=== PATIENT | male | born 1975 | race Caucasian/White ===

== ENCOUNTER → 2020-06-29 | Outpatient (CLI) | payer OTHER ==
[2020-06-30 20:12] LABS: BARBITURATE, URINE Negative ng/mL (Cutoff=200); PH URINE 6.6 (4.5-8.9)
[2020-07-03 08:06] LABS: CANNABINOID, URINE See Final Results ng/mL (Cutoff=20); CARBOXY THC (GC/MS) 16 ng/mL (Cutoff=10)
== END | disposition home or self-care (01) ==
LOC: LAB 14:59
PROVIDERS: Internal Medicine; ATTEND Internal Medicine
DX: Z51.81 Encounter for therapeutic drug level monitoring (principal)

== ENCOUNTER → 2020-07-26 | Outpatient (CLI) | payer OTHER | END | disposition home or self-care (01) | LOC: COVID19 11:24 | PROVIDERS: ATTEND Internal Medicine | DX: Z20.822 Contact with and (suspected) exposure to COVID-19 (principal); R51.9 Headache, unspecified; J32.9 Chronic sinusitis, unspecified ==